=== PATIENT | female | born 1975 | race Asian ===

== ENCOUNTER 2025-10-30 10:13 | Emergency (ER) | payer BC, OTHER ==
[~2025-10-30] VITALS: Ht 170.2 cm; Wt 65.4 kg
--- NOTE | 2025-10-30 11:30 | ED.PDOC ---
Back pain HPI HPI Comments 50 y.o female presents to the ED for a chief complaint of mid to upper back pain radiating to neck that started today while she was at work. She reports a sharp sensation, states she went home early and while driving, developed blurred vision and had one episode of emesis. She states upon ED arrival, nausea and blurred vision have resolved, however states ongoing tension to her back. She denies any chest pain, fever, chills, recent injuries or falls. She is ambulatory with no assistance and is Alert and oriented x 4. Chief Complaint: Back Pain Time Seen by MD: 11:24 Reviewed Notes: Nurses Notes, Medications, Allergies Allergies: Coded Allergies: NO KNOWN ALLERGIES (Unverified , 10/30/25) Information Source: Patient Mode of Arrival: Ambulatory Timing: Hours Duration: Since onset Location of Back pain: (B) Lumbar Severity: Moderate Quality: Sharp Onset: Spontaneous History of: None Modifying Factors: Nothing Associated signs and symptoms: Nausea, Vomiting, Other (blurred vision ) Past Medical History PAST MEDICAL HISTORY: Denies Surgical History: Denies all surgeries PEANUT GRADER History: No Pertinent PEANUT GRADER History Family History Family History: Reviewed,noncontributory to illness, No family hx of Cancer, No family hx of DM, No family hx of Heart tommy, No family hx of HTN, No family hx ofKidney tommy, No family hx of Liver tommy, No family hx of Lung tommy, No family hx of Stroke Social History Smoker: Non-Smoker Alcohol: Denies ETOH Use Drugs: Denies Drug Use Lives In: Home Constitutional: denies: chills, diaphoresis, fatigue, fever, malaise, sweats, weakness, others EENTM: reports: blurred vision; denies: double vision, ear bleeding, ear d ischarge, ear drainage, ear pain, ear ringing, eye pain, eye redness, hearing loss, mouth pain, mouth swelling, nasal discharge, nose bleeding, nose congestion, nose pain, photophobia, tearing, throat pain, throat swelling, voice changes, others Respiratory: denies: cough, hemoptysis, orthopnea, SOB at rest, shortness of breath, SOB with excertion, stridor, wheezing, others Cardiovascular: denies: chest pain, dizzy spells, diaphoresis, Dyspnea on exertion, edema, irregular heart beat, left arm pain, lightheadedness, palpitations, PND, syncope, others Gastrointestinal: reports: nausea, vomiting; denies: abdomen distended, abdominal pain, blood streaked bowels, constipated, diarrhea, dysphagia, difficulty swallowing, hematemesis, melena, poor appetite, poor fluid intake, rectal bleeding, rectal pain, others Genitourinary: denies: abnormal vagina bleeding, burning, dyspareunia, dysuria, flank pain, frequency, hematuria, incontinence, pain, , vagina discharge, urgency, others Neurological: denies: dizziness, fainting, headache, left sided numbness, left sided weakness, numbness, paresthesia, pre-existing deficit, right sided numbness, right sided weakness, seizure, speech problems, tingling, tremors, weakness, others Musculoskeletal: reports: back pain; denies: gout, joint pain, joint swelling, muscle pain, muscle stiffness, neck pain, others Integumetry: denies: bruises, change in color, change in hair/nails, dryness, laceration, lesions, lumps, rash, wounds, others Allergic/Immunocompromised: denies: Difficulty Healing, Frequent Infections, Hives, Itching, others Hematologic/Lymphatic: denies: anemia, blood clots, easy bleeding, easy bruising, swollen glands, others Endocrine: denies: excessive hunger, excessive sweating, excessive thirst, excessive urination, flushing, intolerance to cold, intolerance to heat, unexplained weight gain, unexplained weight loss, others Psychiatric: denies: anxiety, bipolar disorder, depression, hopeless, panic disorder, schizophrenia, sleepless, suicidal, others All Other Systems: Reviewed and Negative Physical Exam General Appearance: No Apparent Distress HEENT: Pharynx Normal Neck: Normal Inspection Respiratory: No Respiratory Distress Cardiovascular: No Edema Breast Exam: Deferred Gastrointestinal: Non Tender Genitalia: Deferred Pelvic: Deferred Rectal: Deferred Extremities: No pedal edema Neurologic: No Motor Deficits Cerebellar Function: NOT DONE Reflexes: NOT DONE Skin: Normal Color Lymphatic: NOT DONE Was a procedure done? Was a procedure done?: No Back Pain Differential Dx Differential Diagnosis: DJD, Fracture, Musculoskeletal Pain, Pancreatits, Pyelonephritis, Strain X-Ray, Labs, Meds, VS Vital Signs Date Time Temp Pulse Resp B/P (MAP) Pulse Ox O2 Delivery O2 Flow Rate FiO2 10/30/25 10:44 75 10/30/25 10:36 98.6 82 18 117/74 97 98.6 Lab Test 10/30/25 12:34 10/30/25 11:33 Range/Units Troponin I High Sensitivity < 3 L < 3 L </=34 ng/L White Blood Count 9.8 4.4-10.8 10^3/uL Red Blood Count 4.07 4.0-5.20 10^6/uL Hemoglobin 13.0 12.2-16.2 g/dL Hematocrit 38.4 36.0-46.0 % Mean Corpuscular Volume 94.4 80.0-100.0 fL Mean Corpuscular Hemoglobin 31.9 28.0-32.0 pg Mean Corpuscular Hemoglobin Concent 33.8 32.0-36.0 g/dL Red Cell Distribution Width 13.3 11.8-14.3 % Platelet Count 263 140-450 10^3/uL Mean Platelet Volume 6.4 L 6.9-10.8 fL Neutrophils (%) (Auto) 89.9 H 37.0-80.0 % Lymphocytes (%) (Auto) 4.3 L 10.0-50.0 % Monocytes (%) (Auto) 5.4 0.0-12.0 % Eosinophils (%) (Auto) 0.2 0.0-7.0 % Basophils (%) (Auto) 0.2 0.0-2.0 % Neutrophils # (Auto) 8.8 H 1.6-8.6 10 ^3/uL Lymphocytes # (Auto) 0.4 0.4-5.4 10 ^3/uL Monocytes # (Auto) 0.5 0-1.3 10 ^3/uL Eosinophils # (Auto) 0 0-0.8 10 ^3/uL Basophils # (Auto) 0 0-0.2 10 ^3/uL Nucleated Red Blood Cells 0.0 % Sodium Level 139 136-145 mmol/L Potassium Level 3.9 3.5-5.1 mmol/L Chloride Level 102 98-107 mmol/L Carbon Dioxide Level 28 20-31 mmol/L Anion Gap 9 5-15 Blood Urea Nitrogen 8 L 9-23 mg/dL Creatinine 0.70 0.550-1.02 mg/dL Glomerular Filtration Rate Calc 105 >90 mL/min BUN/Creatinine Ratio 11.4 10.0-20.0 Serum Glucose 105 74-106 mg/dL Calcium Level 9.6 8.7-10.4 mg/dL Time of 1ST Reevaluation: 11:26 Reevaluation 1ST: Unchanged Patient Education/Counseling: Diagnosis, Treatment, Prognosis Family Education/Counseling: No Family Present SEPSIS Sepsis Screen Date sepsis recognized/suspect: Oct 30, 2025 Time Sepsis recognized/suspect: 1038 Recent Procedure: No On Antibiotic Therapy: No Respiratory Rate >20: No Heart Rate >90: No Temp<36 C (96.8 F) or >38.3 C: No SBP <90 or MAP <65 mmHG: No New Acute Mental Status Change: No Is the patient on CPAP, BIPAP,: No Physician Orders Electrocardigram (10/30/25 10:46) Urinalysis (10/30/25 11:26) Chest Portable (10/30/25 11:26) Head Without Contrast (10/30/25 11:26) Troponin-I Hs (10/30/25 14:26) Electrocardigram (10/30/25 12:26) Electrocardigram (10/30/25 14:26) Vital Signs Date Time Temp Pulse Resp B/P (MAP) Pulse Ox O2 Delivery O2 Flow Rate FiO2 10/30/25 10:44 75 10/30/25 10:36 98.6 82 18 117/74 97 98.6 Laboratory Tests Test 10/30/25 11:33 White Blood Count 9.8 10^3/uL (4.4-10.8) Departure 1 Departure Time of Disposition: 13:01 (In my judgment the patient likely had a viral illness. However patient is feeling significantly better. Patient likely with a blurry vision and felt lightheaded and in the setting of vasovagal secondary to nausea and vomiting. Patient has feeling well. We will discharge patient home with outpatient follow up) Impression: Primary Impression: Lumbar radiculopathy Additional Impressions: Nausea and vomiting Blurry vision Disposition: 01 HOME / SELF CARE / HOMELESS Condition: Stable Additional Instructions: Your workup today was benign including normal labs, normal CT scan, normal x- ray. You may have had a stomach bug that caused you to have this pain and feel this way. For pain you can take the followinam: Ibuprofen 400mg with food Noon: Acetaminophen 1000mg 4pm: Ibuprofen 400mg with food 8pm: Acetaminophen 1000mg You were prescribed Zofran to take as needed for nausea. You should follow up with your regular doctor within one week to ensure you are doing better. If your symptoms worsen or you have any other concerns then please return to the ER. e-Prescriptions Ondansetron Odt 4MG Tab (ZOFRAN PO) 4 Mg Tb 4 MG PO TID PRN for 4 Days, #12 TAB ODT TAB-DISSOLVE IN MOUTH, THEN SWALLOW Prov: ROSA MARIA URIBE MD 10/30/25 Discharged With: Self Critical Care Note Critical Care Time?: No Stability Stability form required: No I personally scribed for ROSA MARIA URIBE MD ([email or web address]) on 10/30/25 at 11:30. Electronically submitted by Agatha Alicea ([facility]). ROSA MARIA URIBE MD Oct 30, 2025 11:30
[2025-10-30 11:45] LABS: Hematocrit 38.4 % (36.0-46.0); Hemoglobin 13.0 g/dL (12.2-16.2); Mean Corpuscular Hemoglobin 31.9 pg (28.0-32.0); Mean Corpuscular Volume 94.4 fL (80.0-100.0); Nucleated Red Blood Cells % 0.0 %
[2025-10-30 11:52] LABS: Chloride 102 mmol/L (98-107); Potassium 3.9 mmol/L (3.5-5.1); Sodium 139 mmol/L (136-145)
[2025-10-30 11:53] LABS: Anion Gap 9 (5-15); Calcium 9.6 mg/dL (8.7-10.4); Carbon Dioxide 28 mmol/L (20-31)
[2025-10-30 11:58] LABS: BUN/Creatinine Ratio 11.4 (10.0-20.0); Glucose 105 mg/dL (74-106)
[2025-10-30 12:03] LABS: Blood Urea Nitrogen 8 mg/dL (9-23)
--- NOTE | 2025-10-30 12:17 | DVH ---
CLINICAL INFORMATION: Near syncope. TECHNIQUE: Single AP portable chest radiograph was obtained. COMPARISON: None FINDINGS: Lungs: Clear. Cardiac: Heart size is within normal limits. Pulmonary vasculature: Unremarkable. Mediastinum/ken: Unremarkable. Bones: No acute osseous abnormality identified. Other: No other significant findings. IMPRESSION: No evidence of acute disease in the chest.
--- NOTE | 2025-10-30 12:23 | DVH ---
CT HEAD WITHOUT CONTRAST INDICATION: Near syncope COMPARISON: None TECHNIQUE: CT of the head without intravenous contrast. RADIATION DOSE: CTDIvol: 53 mGy, DLP: 756 mGy*cm FINDINGS: There is no evidence of acute intracranial hemorrhage, extra-axial collection, mass effect, midline shift, herniation or hydrocephalus. The ventricles, sulci and cisterns are age appropriate. The reyna-white differentiation is intact. The visualized paranasal sinuses and mastoid air cells are clear. The surrounding soft tissues and osseous structures are unremarkable. IMPRESSION: 1. No evidence of acute intracranial hemorrhage, mass effect or hydrocephalus.
[2025-10-30] MEDS ORDERED: ZOFR4T PO (13:04)
[2025-10-30 14:17] VITALS: BP 97/65; PULSE 87; RESP 18; TEMP 98; O2SAT 99
--- NOTE | 2025-10-31 21:03 | ECG ---
[facility] Test Date: 2025-10-30 Test Time: 10:44:05 Pat Name: MACKENZIE SPENCER Department: ED Room: Gender: F Patient Care Manager: gustavo : 1975 Requested By: ROSA MARIA URIBE Order Number: [id number] Reading MD: Measurements Intervals [place] Rate: 75 P: 80 MS: 144 QRS: 104 QRSD: 145 T: 58 QT: 403 QTc: 451 Interpretive Statements Sinus rhythm RBBB and LPFB Please click the below link to view image of tracing.
== END 2025-10-30 14:19 | disposition home or self-care (01) ==
LOC: ER 10:13
DX: M54.16 Radiculopathy, lumbar region (principal); R11.2 Nausea with vomiting, unspecified; H53.8 Other visual disturbances
CPT/HCPCS: 36415; 70450; 71045; 80048; 84484; 85025; 93005